=== PATIENT | female | born 1965 | race Caucasian/White ===

== ENCOUNTER → 2016-10-21 | Outpatient (CLI) | payer BC ==
[2013-09-11 10:44] VITALS: BP 103/63
[~2016-10-21] MED LIST: NS 100 ML IV 100 ML IV ONE
[2016-10-21 08:56] LABS: CREATININE 1.04 mg/dL (0.55-1.02)
--- NOTE | 2016-10-24 08:32 | CT ---
HISTORY: Right lower quadrant pain Study: CT abdomen pelvis with contrast Comparison: None Technique: Axial post-contrast images with coronal and sagittal reformats. Dose reduction procedures were used with MA/kv adjusted for body size. Findings: The lung bases are clear. The liver, spleen, adrenal glands, and pancreas were within normal limits. No opaque stones are visible within the gallbladder. The kidneys are unobstructed and without stone s or masses. No ureteral calculi are identified. The appendix is normal. No significant intraperiton eal or retroperitoneal lymphadenopathy is identified. There are no findings suggestive of diverticul itis or colitis. Examination of the pelvis demonstrated no evidence for pelvic masses, pelvic fluid, or pelvic lymphadenopathy. No bladder abnormality is identified. No lytic or blastic skeletal lesio ns are identified. IMPRESSION: No significant abnormality identified in Reported By:
== END ==
LOC: RAD 08:26
PROVIDERS: ATTEND Nurse Practitioner Family
DX: R10.813 Right lower quadrant abdominal tenderness (principal); R11.0 Nausea
CPT/HCPCS: 36415; 74177; 82565; 84520; A4222